=== PATIENT | female | born 1955 | race Caucasian/White ===

== ENCOUNTER 2020-03-29 10:32 | Emergency (ER) | payer OTHER ==
[~2020-03-29] VITALS: Ht 154.9 cm; Wt 58.3 kg
--- NOTE | 2020-03-29 10:50 | NUR ---
PT AMBULATORY TO ROOM 12 W/ C/O DIARRHEA/CONSTIPATION. PT ALSO STATES SHE NEEDS A COLONOSCOPY AND STARTED HAVING RLQ ABD PAIN AND WAS TOLD TO GET A CT SCAN TO R/O APPENDICITIS PRIOR TO COLONOSCOPY. PT STATES SHE EATS AND IMMEDIATELY GETS DIARRHEA. PT RESTING ON GURNEY. NADN. MONITORS APPLIED. NOÉ CARRILLO AT BEDSIDE FOR EVAL.
--- NOTE | 2020-03-29 10:56 | NUR ---
PT DENIES ANY RECENT ABX USE AND HAS C/O YELLOW STOOL. PT AWARE OF NEED FOR UA AND STOOL SAMPLE IF POSSIBLE.
--- NOTE | 2020-03-29 11:10 | NUR ---
PT ATTEMPTED AND UNABLE TO PROVIDE STOOL SAMPLE AT THIS TIME.
[2020-03-29 11:26] LABS: MICROSCOPIC INDICATED
[2020-03-29 11:27] LABS: BASOPHILS % (AUTO) 1 % (0-1); EOSINOPHILS % (AUTO) 1 % (1-7); LYMPHOCYTES % (AUTO) 26 % (22-44); MEAN CORPUSCULAR HEMOGLOBIN 32.3 pg (27.0-34.8); MEAN CORPUSCULAR HGB CONC 35.1 g/dL (32.4-35.8); MEAN PLATELET VOLUME 7.4 fL (7.4-10.4); MONOCYTES % (AUTO) 4 % (2-9); NEUTROPHILS % (AUTO) 68 % (42-75); PLATELET COUNT 392 x10^3/uL (130-400); RED BLOOD COUNT 5.25 x10^6/uL (3.82-5.3); RED CELL DISTRIBUTION WIDTH 13.4 % (9.6-15.2)
[2020-03-29 11:28] LABS: MD NO
[2020-03-29 11:42] LABS: ALANINE AMINOTRANSFERASE 25 U/L (12-78); ANION GAP 9 mmol/L (5-15); CALCIUM 9.9 mg/dL (8.5-10.1); CHLORIDE 103 mmol/L (98-107); CREATININE 0.94 mg/dL (0.55-1.02)
[2020-03-29 11:44] LABS: ALKALINE PHOSPHATASE 91 U/L (45-117); TOTAL PROTEIN 7.3 g/dL (6.4-8.2)
[2020-03-29] MEDS ORDERED: OMNIPAQUE 350 MG/ML, 100ML BOTTLE ONE (12:11)
[2020-03-29 12:16] VITALS: BP 120/75
--- NOTE | 2020-03-29 12:17 | NUR ---
PT RESTING ON GURNEY. NADN. THOMASON.
== END 2020-03-29 12:45 | disposition home or self-care (01) ==
LOC: ED 12:30
DX: R10.84 Generalized abdominal pain (principal); R19.7 Diarrhea, unspecified; R10.33 Periumbilical pain; E03.9 Hypothyroidism, unspecified; K59.00 Constipation, unspecified; I10 Essential (primary) hypertension; M10.9 Gout, unspecified; Z90.710 Acquired absence of both cervix and uterus
CPT/HCPCS: 36415; 74177; 80053; 81001; 83690; 85025; 87086; 99285; Q9967

== ENCOUNTER 2020-05-10 09:11 | Emergency (ER) | payer OTHER ==
[~2020-05-10] VITALS: Ht 154.9 cm; Wt 57.4 kg
[2020-05-10 09:15] VITALS: BP 141/74
--- NOTE | 2020-05-10 09:21 | NUR ---
Marisol HERRERA PA to triage to remove sutures.
== END 2020-05-10 09:45 | disposition home or self-care (01) ==
LOC: ED 09:15
DX: S01.01XD Laceration without foreign body of scalp, subsequent encounter (principal); I10 Essential (primary) hypertension; M10.9 Gout, unspecified; Z90.710 Acquired absence of both cervix and uterus; Z79.899 Other long term (current) drug therapy; X58.XXXD Exposure to other specified factors, subsequent encounter
CPT/HCPCS: 99281

== ENCOUNTER 2020-07-19 02:28 | Emergency (ER) | payer OTHER, MEDICARE ==
[~2020-07-19] VITALS: Ht 154.9 cm; Wt 57.5 kg
[2020-07-19] MEDS ORDERED: EPINEPHRINE 1 MG/ML, 1ML SQ ONE (03:00)
[2020-07-19] MEDS ORDERED: FAMOTIDINE 20 MG TABLET PO ONE (03:00)
[2020-07-19] MEDS ORDERED: hydrOXyzine 50MG TABLET ONE (03:12)
[2020-07-19] MEDS ORDERED: FAMOTIDINE 20 MG TABLET ONE (03:12)
[2020-07-19] MEDS ORDERED: EPINEPHRINE 1 MG/ML, 1ML ONE (03:12)
[2020-07-19 03:35] VITALS: BP 137/83
== END 2020-07-19 04:46 | disposition home or self-care (01) ==
LOC: ED 03:04
DX: T78.3XXA Angioneurotic edema, initial encounter (principal); F17.210 Nicotine dependence, cigarettes, uncomplicated; R94.31 Abnormal electrocardiogram [ECG] [EKG]; M10.9 Gout, unspecified; I10 Essential (primary) hypertension; Z86.39 Personal history of other endocrine, nutritional and metabolic disease; Z90.710 Acquired absence of both cervix and uterus
CPT/HCPCS: 93005; 96372; 99284; 99406; J0171; J7512; Q0177